=== PATIENT | female | born 2000 | race African-American/Black ===

== ENCOUNTER 2019-01-15 09:53 | Emergency (ER) | payer OTHER ==
[~2019-01-15] VITALS: Ht 152.4 cm; Wt 61.2 kg
[2019-01-15] MEDS ORDERED: SYNTHROID125 MC1 PO (10:05)
[2019-01-15] MEDS ORDERED: ROBAXIN 750 MG750 M1 PO (10:56)
[2019-01-15 11:25] VITALS: BP 129/81
== END 2019-01-15 11:25 | disposition home or self-care (01) ==
LOC: M.ERS 09:53
DX: S13.9XXA Sprain of joints and ligaments of unspecified parts of neck, initial encounter (principal); S23.3XXA Sprain of ligaments of thoracic spine, initial encounter; V43.02XA Car driver injured in collision with other type car in nontraffic accident, initial encounter; Y93.89 Activity, other specified; Y92.89 Other specified places as the place of occurrence of the external cause; Y99.8 Other external cause status

== ENCOUNTER 2020-06-09 12:52 | Emergency (ER) | payer OTHER ==
[~2020-06-09] VITALS: Ht 152.4 cm; Wt 59.0 kg
[~2020-06-09 12:52] MED LIST: ROBAXIN 750 MG750 M1 PO; SYNTHROID125 MC1 PO
[2020-06-09 13:33] LABS: URINE BILIRUBIN NEGATIVE (Negative); URINE BLOOD NEGATIVE (Negative); URINE CLARITY CLEAR; URINE COLOR YELLOW; URINE GLUCOSE-RANDOM NEGATIVE (Negative); URINE KETONES 1+ (Negative); URINE LEUKOCYTES-REFLEX NEGATIVE (Negative); URINE NITRITE-REFLEX NEGATIVE (Negative); URINE PROTEIN NEGATIVE (Negative); URINE SPECIFIC GRAVITY 1.015 (1.005-1.030); URINE UROBILINOGEN 0.2 E.U./dl (0.2-1.0)
[2020-06-09 13:34] LABS: ABSOLUTE BASOPHILS 0.1 thou/uL (0.0-0.2); ABSOLUTE EOSINOPHILS 0.1 thou/uL (0.0-0.7); ABSOLUTE LYMPHOCYTES 2.4 thou/uL (0.8-5.3); ABSOLUTE MONOCYTES 0.6 thou/uL (0.0-1.2); ABSOLUTE NEUTROPHILS 6.3 thou/uL (1.6-8.1); BASOPHILS 0.7 %; HEMOGLOBIN 14.2 gm/dL (12.0-15.0); LYMPHOCYTES 25.4 %; MCH 32.8 pg (26.0-34.0); MCHC 33.9 g/dL (28.0-37.0); MCV 96.8 fL (80.0-100.0); MONOCYTES 6.4 %; MPV 8.4 fl. (7.2-11.1); NUCLEATED RBCS 0 /100WBC; PLATELET COUNT* 268 thou/uL (150-400); POLYS 66.5 %; RBC 4.33 mil/uL (4.20-5.00); RDW-CV 12.7 % (10.5-14.5); WBC 9.5 thou/uL (4.0-11.0)
[2020-06-09 13:58] LABS: CALCIUM 8.9 mg/dL (8.5-10.1); CREATININE 0.6 mg/dL (0.6-1.3); POTASSIUM 4.9 mmol/L (3.5-5.1)
[2020-06-09 14:03] LABS: ALBUMIN 3.8 g/dL (3.4-5.0); TOTAL BILIRUBIN 0.5 mg/dL (<0.1-1.0); TOTAL PROTEIN 7.4 g/dL (6.4-8.2)
[2020-06-09] MEDS ORDERED: TRINATE TABLET1 EACH PO (15:25)
[2020-06-09 17:17] VITALS: BP 120/75
== END 2020-06-09 17:17 | disposition home or self-care (01) ==
LOC: M.ERS 12:52
PROVIDERS: Nurse Practitioner Family
DX: O00.01 Abdominal pregnancy with intrauterine pregnancy (principal); M41.9 Scoliosis, unspecified; E03.9 Hypothyroidism, unspecified; Z3A.01 Less than 8 weeks gestation of pregnancy